=== PATIENT | male | born 1970 | race Two or more races ===

== ENCOUNTER → 2025-03-13 | Outpatient (CLI) | payer MEDICAID, SELFPAY ==
--- NOTE | 2025-03-13 10:49 | XR_ITS ---
Shoulder bilateral, 5 views of each shoulder views Technique: Shoulder AP internal rotation, AP external rotation, Y view shoulder Exam date and time : 03/13/2025 at 12:01 p.m. Left shoulder: There is severe, nearly complete degenerative narrowing of the glenohumeral joint with large osteophytes around the margin of the humeral head and significant irregularity of the cortex of the glenoid. AC joint appears all right, no abnormalities are seen in the visible left lung. Right shoulder: The visible right lung appears clear normal. There is slight widening of the AC joint with very minimal inferior displacement of the acromion process. The humeral head appears radiographically normal. Likewise the scapula appears normal. In the right shoulder and oblique view showing the glenohumeral joint was not obtained. It does not appear that there is any joint space narrowing but I cannot be absolutely certain IMPRESSION: 1. 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 On the right there is minimal widening and slight offset of the AC joint. This could be related to an old remote sprain of the acromioclavicular ligament. 3 in oblique view showing the glenohumeral joint right shoulder was not obtained, hence I cannot make a definitive comment regarding this joint, although from the images obtained, the joint space is probably essentially normal.
== END | disposition home or self-care (01) ==
LOC: CDIM 10:32
PROVIDERS: PCP Physician Assistant; Referring Provider Physician Assistant; Visit Provider Physician Assistant
DX: M19.012 Primary osteoarthritis, left shoulder (principal); M25.851 Other specified joint disorders, right hip
CPT/HCPCS: 73030